=== PATIENT | male | born 1990 | race Caucasian/White ===

== ENCOUNTER 2019-09-15 15:41 | Emergency (ER) | payer OTHER, MEDICAID ==
[~2019-09-15] VITALS: Ht 170.2 cm; Wt 83.9 kg
[2019-09-15 15:52] VITALS: BP 117/79; Ht 170.2 cm; Wt 83.9 kg
== END 2019-09-15 16:21 | disposition home or self-care (01) ==
LOC: ED 15:41
DX: S39.012A Strain of muscle, fascia and tendon of lower back, initial encounter (principal); M54.2 Cervicalgia; V49.49XA Driver injured in collision with other motor vehicles in traffic accident, initial encounter; Y93.I9 Activity, other involving external motion; Y92.411 Interstate highway as the place of occurrence of the external cause; Y99.8 Other external cause status